=== PATIENT | female | born 2000 | race Caucasian/White ===

== ENCOUNTER 2023-04-29 08:43 | Outpatient (CLI) | payer BC, SELFPAY ==
[2023-04-29 09:18] LABS: Albumin* 4.5 g/dL (3.3-5.0)
[2023-04-29 09:20] LABS: HCG Qualitative Serum* Negative (Negative)
[2023-04-29 09:21] LABS: Alanine Aminotransferase* 35 U/L (4-35); Alkaline Phosphatase* 63 U/L (40-150); Aspartate Amino Transferase* 48 U/L (12-35); Bilirubin Direct* 0.1 mg/dL (0.0-0.5); Bilirubin Total* 0.5 mg/dL (0.1-1.5); Cholesterol* 195 mg/dL (90-199); HDL Cholesterol* 86 mg/dL (>=50); LDL Cholesterol Calculated 81 mg/dL (<100); Total Protein* 7.7 g/dL (6.0-8.3); Triglycerides* 140 mg/dL (40-149)
== END 2023-04-29 08:44 | disposition home or self-care (01) ==
LOC: NPINS 09:12 → LAB 11:45
DX: L70.0 Acne vulgaris (principal)
CPT/HCPCS: 80061; 80076; 84703